=== PATIENT | female | born 1940 | race Caucasian/White ===

== ENCOUNTER 2018-04-19 16:03 | Emergency (ER) | payer MEDICARE ==
[2018-04-19 16:21] VITALS: BP 135/89
--- NOTE | 2018-04-19 17:23 | RAD ---
INDICATION: Fever COMPARISON: Chest x-ray June 15, 2007 TECHNIQUE: PA and lateral views of the chest were obtained. FINDINGS: There are surgical clips overlying the bilateral axilla The heart and mediastinum are normal in size and contour. The lungs are grossly clear. There is no evidence of large pleural effusion. Visualized bones are normal for the patient's age. There is no radiographic evidence of free air beneath the diaphragm IMPRESSION: No radiographic evidence of acute cardiopulmonary disease.
--- NOTE | 2018-04-19 17:33 | UC ---
Abdominal Pain Female HPI - HPI Summary HPI Summary: 77 yo female with the onset yesterday of fever/chills and right sided abd pain Abd pain waxes and wanes currently mild anorexic has had episodic fever and chill for weeks lasts 2-3 days this is the first time it's been associated with abd pain no wt loss no cp or sob no uti symptoms - History of Current Complaint Chief Complaint: UCGeneralIllness Stated Complaint: FEVER, AND ACHES Time Seen by Provider: 04/19/18 16:31 Hx Obtained From: Patient Hx Last Menstrual Period: post Onset/Duration: Gradual Onset, Lasting Hours Timing: Constant Severity Initially: Mild Severity Currently: Mild Pain Intensity: 3 Location: Discrete At: RUQ Radiates to: Flank Character: Colicy Alleviating Factor(s): Position Associated Signs and Symptoms: Positive: Fever, Decreased Appetite, Diarrhea - chronic intermittent issue. Negative: Diaphoresis, Cough, Chest Pain, Dizzy, Back Pain, Constipation, Blood in Stool, Urinary Symptoms, Vaginal Bleeding, Vaginal Discharge, Nausea Allergies/Adverse Reactions: Allergies Allergy/AdvReac Type Severity Reaction Status Date / Time codeine Allergy Severe GI Upset Verified 04/19/18 16:28 dextromethorphan Allergy Severe Unknown Verified 04/19/18 16:28 [From Dimetapp Reaction Cold-Congestion] Details diphenhydramine Allergy Severe Palpitation Verified 04/19/18 16:28 [From Dimetapp s Cold-Congestion] fentanyl Allergy Severe GI Upset Verified 04/19/18 16:28 hydromorphone [From Dilaudid] Allergy Severe GI Upset Verified 04/19/18 16:28 metronidazole [From Flagyl] Allergy Severe n/v, dry Verified 04/19/18 16:28 heaves oxycodone Allergy Severe GI Upset Verified 04/19/18 16:28 Penicillins Allergy Severe Rash Verified 04/19/18 16:28 phenylephrine Allergy Severe arrythmia Verified 04/19/18 16:28 [From Dimetapp Cold-Congestion] pseudoephedrine Allergy Severe Palpitation Verified 04/19/18 16:28 [From Dimetapp s Cold-Congestion] tramadol Allergy Severe GI Upset Verified 04/19/18 16:28 guaifenesin Allergy Intermediate Palpitation Verified 04/19/18 16:28 [From Dimetapp s Cold-Congestion] amoxicillin Allergy Unknown Verified 04/19/18 16:28 Reaction Details aspirin Allergy Unknown Verified 04/19/18 16:28 Reaction Details cefuroxime [From Ceftin] Allergy Unknown Verified 04/19/18 16:28 Reaction Details ciprofloxacin [From Cipro] Allergy Vomiting Verified 04/19/18 16:28 clavulanic acid Allergy Unknown Verified 04/19/18 16:28 [From Augmentin] Reaction Details omeprazole Allergy palpitations, Verified 04/19/18 16:28 hives Sulfa (Sulfonamide Allergy angio edema Verified 04/19/18 16:28 Antibiotics) terfenadine Allergy palpitations, Verified 04/19/18 16:28 arrythmia Tetracyclines Allergy arrythmia Verified 04/19/18 16:28 PMH/Surg Hx/FS Hx/Imm Hx Previously Healthy: Yes Respiratory History: COPD Cancer History: Breast Cancer - Surgical History Surgical History: Yes Surgery Procedure, Year, and Place: hysterectomy; JENA MASTECTOMY -2006; SINUS- 2003; CATARACT -2004;. Rt KNEE - MMT - 2005. Sinus surgery approx 2007 - Family History Known Family History: Positive: Hypertension - Social History Alcohol Use: Occasionally Substance Use Type: None Smoking Status (MU): Never Smoked Tobacco Have You Smoked in the Last Year: No Review of Systems Constitutional: Fever, Chills Skin: Negative Eyes: Negative ENT: Negative Respiratory: Negative Cardiovascular: Negative Gastrointestinal: Abdominal Pain Genitourinary: Negative Motor: Negative Neurovascular: Negative Musculoskeletal: Negative Neurological: Negative Psychological: Negative Is Patient Immunocompromised?: No All Other Systems Reviewed And Are Negative: Yes Physical Exam Triage Information Reviewed: Yes Appearance: Well-Appearing, No Pain Distress, Well-Nourished Vital Signs: Initial Vital Signs Temp 101 F 04/19/18 16:08 Pulse 93 04/19/18 16:08 Resp 16 04/19/18 16:08 BP 135/89 04/19/18 16:08 Pulse Ox 100 04/19/18 16:08 Vital Signs Reviewed: Yes Eyes: Positive: Conjunctiva Clear ENT: Positive: Hearing grossly normal. Negative: Nasal congestion, Nasal drainage, Trismus, Muffled voice, Hoarse voice Neck: Positive: Supple, Nontender, No Lymphadenopathy Respiratory: Positive: Lungs clear, Normal breath sounds, No respiratory distress, No accessory muscle use Cardiovascular: Positive: RRR, No Murmur Abdomen Description: Positive: No Organomegaly, Soft. Negative: Nontender - RLQ tenderness Bowel Sounds: Positive: Present Musculoskeletal: Positive: ROM Intact, No Edema Neurological: Positive: Alert Psychological Exam: Normal Skin Exam: Normal Diagnostics - Laboratory Diagnostic Studies Completed/Ordered: UA +rbcs - Radiology No standard instances Xray Interpretation: No Acute Changes Radiology Interpretation Completed By: Radiologist Abd Pain Female Course/Dx - Differential Dx/Diagnosis Provider Diagnoses: fever and right sided abd pain of uncertain cause Discharge - Sign-Out/Discharge Documenting (check all that apply): Patient Departure All imaging exams completed and their final reports reviewed: Yes - Discharge Plan Condition: Stable Disposition: TRANS HIGHER LVL OF CARE FAC Referrals: Emma Miranda MD [Primary Care Provider] - Additional Instructions: I suggest you go to the ER for the evaluation of your fever and right lower quadrant abdominal pain Don't eat or drink en route - Billing Disposition and Condition Condition: STABLE Disposition: Trans Higher Lvl of Care Fac
--- NOTE | 2018-04-21 19:45 | UC ---
- Progress Note Progress Note: urine no growth pt sent to ED no change coreyj 04/21/18 Discharge - Sign-Out/Discharge Documenting (check all that apply): Post-Discharge Follow Up All imaging exams completed and their final reports reviewed: Yes - Discharge Plan Condition: Stable Disposition: TRANS HIGHER LVL OF CARE FAC Referrals: Emma Miranda MD [Primary Care Provider] - Additional Instructions: I suggest you go to the ER for the evaluation of your fever and right lower quadrant abdominal pain Don't eat or drink en route - Billing Disposition and Condition Condition: STABLE Disposition: Trans Higher Lvl of Care Fac
== END 2018-04-19 17:40 | disposition short-term general hospital (02) ==
LOC: UCEAST 16:03
DX: R50.9 Fever, unspecified (principal); R10.31 Right lower quadrant pain; R10.11 Right upper quadrant pain; Z88.6 Allergy status to analgesic agent; Z88.1 Allergy status to other antibiotic agents; Z88.5 Allergy status to narcotic agent; Z88.0 Allergy status to penicillin; Z88.2 Allergy status to sulfonamides; Z88.8 Allergy status to other drugs, medicaments and biological substances
CPT/HCPCS: 71046; 81003; 87086; 99212; G0463

== ENCOUNTER 2018-04-19 18:04 | Emergency (ER) | payer MEDICARE ==
--- NOTE | 2018-04-19 18:38 | ED ---
HPI Febrile Illness - HPI Summary HPI Summary: A 77 y/o female accompanied by her presents to ED c/o intermittent fever. Additionally c/o RLQ abdominal pain and headache (low-grade, forehead) reaching 3/10 in severity. As per triage, "Pt referred to ED by [facility] for c/o recurrent fever and R lower quad abd pain". According to the patient, she has been experiencing fever and abdominal pain for the 3rd time in 4 weeks. Additionally, she generally "feels awful". She stated that the fever is more of a concern for her as her abdominal pain is intermittent (pain also moves around , noticed at [facility]) and she has IBS. The fever started yesterday afternoon and has constant since. Furthermore, approximately 2 weeks ago the fever lasted 4-5 days, with the week before that being severe (103-104 F) lasting for 3 days. Denies any rash, ear pain, urinary symptoms, sore throat, diarrhea (that is abnormal), constipation (that is abnormal) or chest congestion however does have clear nasal discharge. She noted that her PCP, Dr. Emma Tobias, did basic blood work and exploratory scans. The blood work revealed an increase white count. Patient has multiple allergies, but can have IV constrast as she had it in the past. A CXR was completed at [facility] earlier today. Patient is unsure of tick, PCP did not exam her for one. - History of Current Complaint Chief Complaint: EDFever Time Seen by Provider: 04/19/18 18:29 Hx Obtained From: Patient Hx Last Menstrual Period: post Onset/Duration: Started Weeks Ago, Still Present Timing: Intermittent Temperature: 101.4 F - Triage Initial Severity: Mild Current Severity: Mild Pain Intensity: 3 Pain Scale Used: 0-10 Numeric Aggravating Factors: Nothing Alleviating Factors: Nothing Associated Signs and Symptoms: Headache - Allergy/Home Medications Allergies/Adverse Reactions: Allergies Allergy/AdvReac Type Severity Reaction Status Date / Time codeine Allergy Severe GI Upset Verified 04/19/18 16:28 dextromethorphan Allergy Severe Unknown Verified 04/19/18 16:28 [From Dimetapp Reaction Cold-Congestion] Details diphenhydramine Allergy Severe Palpitation Verified 04/19/18 16:28 [From Dimetapp s Cold-Congestion] fentanyl Allergy Severe GI Upset Verified 04/19/18 16:28 hydromorphone [From Dilaudid] Allergy Severe GI Upset Verified 04/19/18 16:28 metronidazole [From Flagyl] Allergy Severe n/v, dry Verified 04/19/18 16:28 heaves oxycodone Allergy Severe GI Upset Verified 04/19/18 16:28 Penicillins Allergy Severe Rash Verified 04/19/18 16:28 phenylephrine Allergy Severe arrythmia Verified 04/19/18 16:28 [From Dimetapp Cold-Congestion] pseudoephedrine Allergy Severe Palpitation Verified 04/19/18 16:28 [From Dimetapp s Cold-Congestion] tramadol Allergy Severe GI Upset Verified 04/19/18 16:28 guaifenesin Allergy Intermediate Palpitation Verified 04/19/18 16:28 [From Dimetapp s Cold-Congestion] amoxicillin Allergy Unknown Verified 04/19/18 16:28 Reaction Details aspirin Allergy Unknown Verified 04/19/18 16:28 Reaction Details cefuroxime [From Ceftin] Allergy Unknown Verified 04/19/18 16:28 Reaction Details ciprofloxacin [From Cipro] Allergy Vomiting Verified 04/19/18 16:28 clavulanic acid Allergy Unknown Verified 04/19/18 16:28 [From Augmentin] Reaction Details omeprazole Allergy palpitations, Verified 04/19/18 16:28 hives Sulfa (Sulfonamide Allergy angio edema Verified 04/19/18 16:28 Antibiotics) terfenadine Allergy palpitations, Verified 04/19/18 16:28 arrythmia Tetracyclines Allergy arrythmia Verified 04/19/18 16:28 PMH/Surg Hx/FS Hx/Imm Hx Endocrine/Hematology History: Denies: Hx Diabetes, Hx Thyroid Disease Cardiovascular History: Denies: Hx Angina, Hx Coronary Artery Disease, Hx Hypercholesterolemia, Hx Hypertension, Hx Myocardial Infarction, Hx Pacemaker/ICD, Hx Peripheral Vascular Disease, Hx Valvular Heart Disease Respiratory History: Reports: Hx Asthma - MINOR Denies: Hx Chronic Obstructive Pulmonary Disease (COPD) Musculoskeletal History: Reports: Hx Arthritis - mild, Hx Osteoporosis Denies: Hx Rheumatoid Arthritis Sensory History: Denies: Hx Cataracts, Hx Contacts or Glasses, Hx Glaucoma, Hx Hearing Aid Opthamlomology History: Denies: Hx Cataracts, Hx Contacts or Glasses, Hx Glaucoma Neurological History: Reports: Other Neuro Impairments/Disorders - FIBROMYALGIA Denies: Hx Headaches, Hx Seizures, Hx Transient Ischemic Attacks (TIA) Psychiatric History: Denies: Hx Anxiety, Hx Depression, Hx Panic Disorder - Cancer History Cancer Type, Location and Year: BREAST - JENA. MASTECTOMY 7 YR AGO Hx Chemotherapy: No Hx Radiation Therapy: No - Surgical History Surgery Procedure, Year, and Place: hysterectomy; JENA MASTECTOMY -2006; SINUS- 2003; CATARACT -2004;. Rt KNEE - MMT - 2005. Sinus surgery approx 2007 Infectious Disease History: No Infectious Disease History: Denies: Traveled Outside the [place] in Last 30 Days - Family History Known Family History: Positive: Hypertension - Social History Alcohol Use: Occasionally Hx Substance Use: No Substance Use Type: Reports: None Hx Tobacco Use: No Smoking Status (MU): Never Smoked Tobacco Have You Smoked in the Last Year: No Review of Systems Positive: Fever - intermittent Positive: Nasal Discharge - Somewhat clear. Negative: Sore Throat, Ear Ache Positive: Other - NEGATIVE: Chest congestion Positive: Abdominal Pain, Other - NEGATIVE: Constipation. Negative: Diarrhea Positive: no symptoms reported Negative: Rash Positive: Headache All Other Systems Reviewed And Are Negative: Yes Physical Exam - Summary Physical Exam Summary: General: well-appearing, no pain distress Skin: warm, color reflects adequate perfusion, dry Head: normal Eyes: EOMI, TATIANA ENT: normal Neck: supple, nontender Respiratory: CTA, breath sounds present Cardiovascular: RRR Abdomen: soft, mild tenderness on the right side of abdomen. Bowel: present Musculoskeletal: normal, strength/ROM intact Neurological: sensory/motor intact, A&O x3 Psychological: affect/mood appropriate Triage Information Reviewed: Yes Vital Signs On Initial Exam: Initial Vitals Temp Pulse Resp BP Pulse Ox 101.4 F 85 16 149/90 97 04/19/18 18:10 04/19/18 18:10 04/19/18 18:10 04/19/18 18:10 04/19/18 18:10 Vital Signs Reviewed: Yes Diagnostics - Vital Signs Vital Signs Temp Pulse Resp BP Pulse Ox 04/19/18 18:10 101.4 F 85 16 149/90 97 - Laboratory Result Diagrams: 04/19/18 19:23 04/19/18 19:23 Lab Statement: Any lab studies that have been ordered have been reviewed, and results considered in the medical decision making process. - EKG 1953 Cardiac Rate: NL - 76 BPM EKG Rhythm: Sinus Rhythm ST Segment: Normal Ectopy: None Course/Dx - Course Course Of Treatment: Medications reviewed. Allergies noted. DISCUSSED RESULTS WITH THE PATIENT AND . LYME, BABESIOSIS AND EHRLICHIOSIS SCREENS PENDING. F/U WITH DR TOBIAS ON 04/21/18, RETURN TO THE ED SOONER IF WORSE. - Diagnoses Provider Diagnoses: Fever, Abdominal pain - Provider Notifications Discussed Care Of Patient With: Chris Radford Time Discussed With Above Provider: 21:26 Instructed by Provider To: Other - Discussed case with Dr. Radford. Discharge - Sign-Out/Discharge Documenting (check all that apply): Patient Departure - Discharge Plan Condition: Stable Disposition: HOME Patient Education Materials: Fever in Adults (ED), Abdominal Pain (ED) Referrals: Emma Tobias MD [Primary Care Provider] - Additional Instructions: FOLLOW UP WITH DR TOBIAS ON 04/21/18. RETURN TO THE EMERGENCY DEPARTMENT FOR ANY WORSENING OF YOUR CONDITION OR QUESTIONS OR CONCERNS. - Billing Disposition and Condition Condition: STABLE Disposition: Home - Attestation Statements Document Initiated by Eagleibe: Yes Documenting Scribe: Yayo Khoury Provider For Whom Nica is Documenting (Include Credential): Derrick Chester MD Scribe Attestation: Yayo Mg, scribed for Derrick Chester MD on 04/19/18 at 4540. Scribe Documentation Reviewed: Yes Provider Attestation: The documentation as recorded by the Yayo greenwood accurately reflects the service I personally performed and the decisions made by me, Derrick Chester MD
[2018-04-19] MEDS ORDERED: NS 0.9% 1000 ML*IV.FLUID IV ONE (19:12)
[2018-04-19 19:33] LABS: ABS Basophils 0 10^3/ul (0-0.2); ABS Eosinophils 0 10^3/ul (0-0.6); ABS Lymphocytes 0.6 10^3/ul (1.0-4.8); ABS Monocytes 0.4 10^3/ul (0-0.8); ABS Neutrophils 5.1 10^3/ul (1.5-7.7); ABS Nucleated RBC 0 10^3/ul; Eosinophil % 0.1 % (0-6); Hematocrit 36 % (35-47); Hemoglobin 12.4 g/dl (12.0-16.0); Lymphocyte % 9.1 % (25-47); Mean Corpuscular HGB Conc 34 g/dl (31-36); Mean Corpuscular Hemoglobin 30 pg (27-31); Mean Corpuscular Volume 86 fL (80-97); Mean Platelet Volume 7.5 um3 (7.4-10.4); Nucleated Red Blood Cells % 0.1; Platelet Count 291 10^3/ul (150-450); Red Blood Count 4.19 10^6/ul (4.00-5.40); Red Cell Distribution Width 15 % (10.5-15); White Blood Count 6.1 10^3/ul (3.5-10.8)
[2018-04-19 19:44] LABS: INR 1.05 (0.77-1.02)
[2018-04-19 19:54] LABS: EGFR Non-African American 65.6 (>60)
[2018-04-19] MEDS ORDERED: Iohexol 300* (CONTRAST) 10 ML SDV IV ONE (20:26)
[2018-04-19 21:51] LABS: Urine Appearance Clear; Urine Blood 1+ (Negative); Urine Color Straw; Urine Ketones Trace (Negative); Urine Protein Negative (Negative); Urine Red Blood Cell Trace(0-2/hpf) (Absent); Urine Specific Gravity 1.003 (1.010-1.030); Urine Urobilinogen Negative (Negative); Urine White Blood Cell Trace(0-5/hpf) (Absent)
--- NOTE | 2018-04-19 22:05 | RAD ---
EXAM: CT Abdomen and Pelvis With Intravenous Contrast EXAM DATE/TIME: Exam ordered 04/19/2018 9:15 PM CLINICAL HISTORY: 77 years old, female; Pain and signs and symptoms; Fever; Abdominal pain; Localized; Right; Additional info: Rt abd pain, fever TECHNIQUE: Axial computed tomography images of the abdomen and pelvis with intravenous contrast. All CT scans at this facility use at least one of these dose optimization techniques: automated exposure control; mA and/or kV adjustment per patient size (includes targeted exams where dose is matched to clinical indication); or iterative reconstruction. Coronal and sagittal reformatted images were created and reviewed. CONTRAST: 59 mL of OMNI administered intravenously. COMPARISON: A/P W CT ABD/PEL W 11/03/2015 2:17 PM FINDINGS: Lung bases: Minimal bibasilar atelectasis or scar. ABDOMEN: Liver: Ill-defined area of hyperenhancement in the right hepatic lobe measuring approximately 17 mm which is similar to the prior study. Gallbladder and bile ducts: Unremarkable. No calcified stones. No ductal dilation. Pancreas: Unremarkable. No mass. No ductal dilation. Spleen: Unremarkable. No splenomegaly. Adrenals: Unremarkable. No mass. Kidneys and ureters: Unremarkable. No solid mass. No hydronephrosis. Stomach and bowel: The distal ileum appears contracted. No obstruction. No mucosal thickening. PELVIS: Appendix: There are no changes of appendicitis. A normal appendix is not seen. Bladder: Unremarkable. No mass. Reproductive: Status post hysterectomy. ABDOMEN and PELVIS: Intraperitoneal space: Unremarkable. No free air. No significant fluid collection. Bones/joints: No acute fracture. No dislocation. Soft tissues: Unremarkable. Vasculature: Unremarkable. No abdominal aortic aneurysm. Lymph nodes: Unremarkable. No enlarged lymph nodes. IMPRESSION: 1. There has been little change from 11/03/2015. 2. Ill-defined area of hyperenhancement in the right hepatic lobe which is similar to the prior study. 3. Status post hysterectomy.
[2018-04-19 22:26] VITALS: BP 135/63
== END 2018-04-19 22:25 | disposition home or self-care (01) ==
LOC: ED 18:04
DX: R50.9 Fever, unspecified (principal); R10.9 Unspecified abdominal pain
CPT/HCPCS: 36415; 74177; 80053; 81003; 81015; 83605; 83880; 84484; 85025; 85610; 85730; 86140; 86618; 86666; 86753; 87040; 93005; 96361; 96374; 99282; Q9967

== ENCOUNTER 2018-05-13 18:42 | Emergency (ER) | payer MEDICARE ==
--- NOTE | 2018-05-13 18:47 | UC ---
Cardiac HPI - HPI Summary HPI Summary: 77 yo female presents with chest pressure. She tells me that earlier today she just "didn't feel well" - so she took a nap this afternoon. When she woke around 1800 she felt her ribs/chest were being squeezed and that it was difficult to take a deep breath. Also felt some ache to her left upper arm, which she has had in her left hand for months, but never in her upper arm. She took a 325mg ASA and came to after her symptoms did not resolve within an hour. Currently she denies fever, chills, recent illness, dizziness, headache, SOB, abdominal pain, n/v. - History of Current Complaint Stated Complaint: CHEST COMPRESSION,ARM NUMBNESS Time Seen by Provider: 05/13/18 18:46 Hx Obtained From: Patient Hx Last Menstrual Period: post Onset/Duration: Sudden Onset Initial Severity: Moderate Current Severity: Moderate Pain Intensity: 5 - Allergy/Home Medications Allergies/Adverse Reactions: Allergies Allergy/AdvReac Type Severity Reaction Status Date / Time codeine Allergy Severe GI Upset Verified 05/13/18 20:54 dextromethorphan Allergy Severe Unknown Verified 05/13/18 20:54 [From Dimetapp Reaction Cold-Congestion] Details fentanyl Allergy Severe GI Upset Verified 05/13/18 20:54 hydromorphone [From Dilaudid] Allergy Severe GI Upset Verified 05/13/18 20:54 metronidazole [From Flagyl] Allergy Severe n/v, dry Verified 05/13/18 20:54 heaves oxycodone Allergy Severe GI Upset Verified 05/13/18 20:54 Penicillins Allergy Severe Rash Verified 05/13/18 20:54 phenylephrine Allergy Severe arrythmia Verified 05/13/18 20:54 [From Dimetapp Cold-Congestion] pseudoephedrine Allergy Severe Palpitation Verified 05/13/18 20:54 [From Dimetapp s Cold-Congestion] tramadol Allergy Severe GI Upset Verified 05/13/18 20:54 guaifenesin Allergy Intermediate Palpitation Verified 05/13/18 20:54 [From Dimetapp s Cold-Congestion] amoxicillin Allergy Unknown Verified 05/13/18 20:54 Reaction Details cefuroxime [From Ceftin] Allergy Unknown Verified 05/13/18 20:54 Reaction Details ciprofloxacin [From Cipro] Allergy Vomiting Verified 05/13/18 20:54 clavulanic acid Allergy Unknown Verified 05/13/18 20:54 [From Augmentin] Reaction Details omeprazole Allergy palpitations, Verified 05/13/18 20:54 hives Sulfa (Sulfonamide Allergy angio edema Verified 05/13/18 20:54 Antibiotics) terfenadine Allergy palpitations, Verified 05/13/18 20:54 arrythmia Tetracyclines Allergy arrythmia Verified 05/13/18 20:54 Home Medications: Home Medications Aspirin TAB* [Aspirin 325 MG TAB*] 1 tab PO PRN 05/13/18 [History] PMH/Surg Hx/FS Hx/Imm Hx Respiratory History: Asthma GI/ History: Gastroesophageal Reflux - Surgical History Surgical History: Yes Surgery Procedure, Year, and Place: hysterectomy; JENA MASTECTOMY -2006; SINUS- 2003; CATARACT -2004;. Rt KNEE - MMT - 2005. Sinus surgery approx 2007 - Family History Known Family History: Positive: Hypertension - Social History Occupation: Retired Lives: With Family Alcohol Use: Occasionally Substance Use Type: None Smoking Status (MU): Never Smoked Tobacco Have You Smoked in the Last Year: No Review of Systems Constitutional: Negative Skin: Negative Eyes: Negative ENT: Negative Respiratory: Negative Cardiovascular: Other - chest pressure Gastrointestinal: Negative Genitourinary: Negative Neurovascular: Negative Neurological: Negative Psychological: Negative All Other Systems Reviewed And Are Negative: Yes Physical Exam - Summary Physical Exam Summary: GENERAL: NAD. WDWN. No pain distress. SKIN: No rashes, sores, lesions, or open wounds. NECK: Supple. Nontender. No lymphadenopathy. CHEST: CTAB. No r/r/w. No accessory muscle use. Breathing comfortably and in no distress. CV: RRR. Without m/r/g. Pulses intact. Cap refill <2seconds ABDOMEN: Soft. NTTP. No distention or guarding. No CVA tenderness. Bowel sounds present NEURO: Alert. PSYCH: Age appropriate behavior. Triage Information Reviewed: Yes Vital Signs: Vital Signs: Temp Pulse Resp BP Pulse Ox 97.4 F 65 16 163/79 99 05/13/18 18:49 05/13/18 18:49 05/13/18 18:49 05/13/18 18:49 05/13/18 18:49 Vital Signs Reviewed: Yes - Assessment/Plan Course Of Treatment: EKG 61bpm NSR no ST changes as read by Dr. Holloway. Given pt' s symptoms and hx of cancer, there is a concern for PE and/or cardiac disease. Therefore, I have advised pt and her with her today to be further evaluated in the ED. They were agreeable to this, but declined ambulance transfer and will drive her. - Clinical Impression Provider Diagnoses: Chest pressure Discharge - Sign-Out/Discharge Documenting (check all that apply): Patient Departure All imaging exams completed and their final reports reviewed: No Studies - Discharge Plan Condition: Stable Disposition: HOME Referrals: Emma Miranda MD [Primary Care Provider] - Additional Instructions: Please go to the ER for further evaluation of your chest pressure - Billing Disposition and Condition Condition: STABLE Disposition: Home
[2018-05-13 18:58] VITALS: BP 163/79
== END 2018-05-13 19:30 | disposition home or self-care (01) ==
LOC: UCEAST 18:42
DX: R07.89 Other chest pain (principal); Z88.1 Allergy status to other antibiotic agents; Z88.5 Allergy status to narcotic agent; Z88.0 Allergy status to penicillin; Z88.2 Allergy status to sulfonamides; Z88.8 Allergy status to other drugs, medicaments and biological substances
CPT/HCPCS: 93005; 99212; G0463

== ENCOUNTER 2018-05-13 20:40 | Emergency (ER) | payer MEDICARE ==
--- NOTE | 2018-05-14 00:28 | ED ---
HPI Chest Pain - HPI Summary HPI Summary: The pt is a 77 y.o female who is presenting [place] [facility] [place] by with a chief complaint of chest pain. The pt also reports of left arm pressure since 1630 as well as nausea as per triage report. Currently the pt denies chest pain, however, the left arm pressure is still present. Pt also denies PMHx of cardiac disease as per triage report. The pt is reported to be feeling better and stated that the pain was resolving at around 1736 upon reaching urgent care ([facility]). The pain is described as a squeezing. There was tingling in her fingers for a few months prior to current chief complaint. The left arm pressure is reported to be radiating into her left hand and this began around in the morning, according to the pt, upon waking up. Pt denies vomiting and diaphoresis. She states there is slight nausea that is chronic. Stress test was performed 7 years ago. The pt stated she has intermittent arrhythmia. Pt denies diabetes and reports hypotension. Aspirin was taken (325 mg) prior to [facility] arrival and other medication reviewed. The pt also has Costochondritis consistent with FHx - History of Current Complaint Chief Complaint: EDChestPainROMI Hx Last Menstrual Period: post Onset/Duration: Started Hours Ago - 05/13/18 in the "morning", Resolved Initial Severity: Mild Current Severity: Mild Pain Intensity: 2 Pain Scale Used: 0-10 Numeric Chest Pain Location: Diffuse Character: Pressure/Squeezing Aggravating Factor(s): Nothing Alleviating Factor(s): Nothing Associated Signs and Symptoms: Positive: Nausea, Other: - left hand tingling ( since 2 months ago), left arm pressure.. Negative: Diaphoresis, Vomiting - Allergy/Home Medications Allergies/Adverse Reactions: Allergies Allergy/AdvReac Type Severity Reaction Status Date / Time codeine Allergy Severe GI Upset Verified 05/13/18 20:54 dextromethorphan Allergy Severe Unknown Verified 05/13/18 20:54 [From Dimetapp Reaction Cold-Congestion] Details fentanyl Allergy Severe GI Upset Verified 05/13/18 20:54 hydromorphone [From Dilaudid] Allergy Severe GI Upset Verified 05/13/18 20:54 metronidazole [From Flagyl] Allergy Severe n/v, dry Verified 05/13/18 20:54 heaves oxycodone Allergy Severe GI Upset Verified 05/13/18 20:54 Penicillins Allergy Severe Rash Verified 05/13/18 20:54 phenylephrine Allergy Severe arrythmia Verified 05/13/18 20:54 [From Dimetapp Cold-Congestion] pseudoephedrine Allergy Severe Palpitation Verified 05/13/18 20:54 [From Dimetapp s Cold-Congestion] tramadol Allergy Severe GI Upset Verified 05/13/18 20:54 guaifenesin Allergy Intermediate Palpitation Verified 05/13/18 20:54 [From Dimetapp s Cold-Congestion] amoxicillin Allergy Unknown Verified 05/13/18 20:54 Reaction Details cefuroxime [From Ceftin] Allergy Unknown Verified 05/13/18 20:54 Reaction Details ciprofloxacin [From Cipro] Allergy Vomiting Verified 05/13/18 20:54 clavulanic acid Allergy Unknown Verified 05/13/18 20:54 [From Augmentin] Reaction Details omeprazole Allergy palpitations, Verified 05/13/18 20:54 hives Sulfa (Sulfonamide Allergy angio edema Verified 05/13/18 20:54 Antibiotics) terfenadine Allergy palpitations, Verified 05/13/18 20:54 arrythmia Tetracyclines Allergy arrythmia Verified 05/13/18 20:54 PMH/Surg Hx/FS Hx/Imm Hx Endocrine/Hematology History: Denies: Hx Diabetes, Hx Thyroid Disease Cardiovascular History: Denies: Hx Angina, Hx Coronary Artery Disease, Hx Hypercholesterolemia, Hx Hypertension, Hx Myocardial Infarction, Hx Pacemaker/ICD, Hx Peripheral Vascular Disease, Hx Valvular Heart Disease Respiratory History: Reports: Hx Asthma - MINOR Denies: Hx Chronic Obstructive Pulmonary Disease (COPD) Musculoskeletal History: Reports: Hx Arthritis - mild, Hx Osteoporosis Denies: Hx Rheumatoid Arthritis Sensory History: Denies: Hx Cataracts, Hx Contacts or Glasses, Hx Glaucoma, Hx Hearing Aid Opthamlomology History: Denies: Hx Cataracts, Hx Contacts or Glasses, Hx Glaucoma Neurological History: Reports: Other Neuro Impairments/Disorders - FIBROMYALGIA Denies: Hx Headaches, Hx Seizures, Hx Transient Ischemic Attacks (TIA) Psychiatric History: Denies: Hx Anxiety, Hx Depression, Hx Panic Disorder - Cancer History Cancer Type, Location and Year: 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 Rt KNEE - MMT - 2006. Sinus surgery approx 2008 Infectious Disease History: No Infectious Disease History: Denies: Traveled Outside the [place] in Last 30 Days - Family History Known Family History: Positive: Hypertension, Other - Chostochondritis - Sister and Mother - Social History Occupation: Retired Lives: With Family Alcohol Use: Occasionally Hx Substance Use: No Substance Use Type: Reports: None Hx Tobacco Use: No Smoking Status (MU): Never Smoked Tobacco Have You Smoked in the Last Year: No Review of Systems Negative: Skin Diaphoresis Eyes: Negative ENT: Negative Positive: Chest Pain Respiratory: Negative Positive: Nausea - slight/chronic. Negative: Vomiting Genitourinary: Negative Musculoskeletal: Other - Left arm pressure Skin: Negative Neurological: Other - left hand tingling Psychological: Normal All Other Systems Reviewed And Are Negative: Yes Physical Exam - Summary Physical Exam Summary: VITAL SIGNS: Reviewed. GENERAL: Patient is a well-developed and nourished (FEMALE) who is lying comfortable in the stretcher. Patient is not in any acute respiratory distress. HEAD AND FACE: No signs of trauma. No ecchymosis, hematomas or skull depressions. No sinus tenderness. EYES: PERRLA, EOMI x 2, No injected conjunctiva, no nystagmus. EARS: Hearing grossly intact. Ear canals and tympanic membranes are within normal limits. MOUTH: Oropharynx within normal limits. NECK: Supple, trachea is midline, no adenopathy, no JVD, no carotid bruit, no c- spine tenderness, neck with full ROM. CHEST: Symmetric, no tenderness at palpation LUNGS: Clear to auscultation bilaterally. No wheezing or crackles. CVS: Regular rate and rhythm, S1 and S2 present, no murmurs or gallops appreciated. ABDOMEN: Soft, non-tender. No signs of distention. No rebound no guarding, and no masses palpated. Bowel sounds are normal. EXTREMITIES: FROM in all major joints, no edema, no cyanosis or clubbing. NEURO: Alert and oriented x 3. No acute neurological deficits. Speech is normal and follows commands. SKIN: Dry and warm Triage Information Reviewed: Yes Vital Signs On Initial Exam: Initial Vitals Temp Pulse Resp BP Pulse Ox 98.1 F 72 16 153/85 98 05/13/18 20:45 05/13/18 20:45 05/13/18 20:45 05/13/18 20:45 05/13/18 20:45 Vital Signs Reviewed: Yes Diagnostics - Vital Signs Vital Signs Temp Pulse Resp BP Pulse Ox 05/13/18 20:45 98.1 F 72 16 153/85 98 - Laboratory Result Diagrams: 05/14/18 00:34 05/14/18 00:34 Lab Statement: Any lab studies that have been ordered have been reviewed, and results considered in the medical decision making process. - Radiology Chest X-ray Radiology Interpretation Completed By: ED Physician - As per ED Physician, the chest X-ray reveals no acute processes. Offical report is pending. - EKG 2057 EKG Rhythm: Sinus Rhythm - 62 bpm EKG Interpretation: Normal [place], and normal intervals and no ischemic changes at 2057 Chest Pain Course/Dx - Course Course Of Treatment: The pt is 77 y.o female who has a chief complaint of chest pain. She received an EKG in the [facility] as well as a chest X-ray. The EKG showed normal findings. Upon further evaluation the pt reports to be chest pain free. She has a heart score of 2 and has a 2 negative troponin. We recommend receiving a stress test as an outpatient. The pt will be discharged home with a recommendation to follow up with PCP and medical communication specialist within 1 to 2 days to receive a stress test. The dx will be chest pain. - Diagnoses Provider Diagnoses: Chest pain Discharge - Sign-Out/Discharge Documenting (check all that apply): Patient Departure - Discharge home, Post- Discharge Follow Up - PCP and medical communication specialist follow up within 1 to 2 days - Discharge Plan Condition: Stable Disposition: HOME Patient Education Materials: Chest Pain (ED) Referrals: Emma Miranda MD [Primary Care Provider] - Additional Instructions: We recommend follow up with [employer] and PCP within 1 to 2 days as well as to receive a stress test as an outpatient. RETURN TO THE EMERGENCY DEPARTMENT FOR CHANGING OR WORSENING SYMPTOMS. - Attestation Statements Document Initiated by Scribe: Yes Documenting Scribe: Satya Scruggs Provider For Whom Scribe is Documenting (Include Credential): Dr. Marily Cortez Scribe Attestation: Satya Mg scribed for Dr. Marily Cortez on 05/14/18 at 0418.
[2018-05-14 00:53] LABS: ABS Basophils 0.1 10^3/ul (0-0.2); ABS Eosinophils 0.1 10^3/ul (0-0.6); ABS Lymphocytes 1.7 10^3/ul (1.0-4.8); ABS Monocytes 0.5 10^3/ul (0-0.8); ABS Nucleated RBC 0 10^3/ul; Eosinophil % 1.5 % (0-6); Hematocrit 34 % (35-47); Hemoglobin 11.7 g/dl (12.0-16.0); Lymphocyte % 31.9 % (25-47); Mean Corpuscular HGB Conc 34 g/dl (31-36); Mean Corpuscular Hemoglobin 30 pg (27-31); Mean Corpuscular Volume 87 fL (80-97); Mean Platelet Volume 7.1 um3 (7.4-10.4); Nucleated Red Blood Cells % 0.1; Platelet Count 322 10^3/ul (150-450); Red Blood Count 3.91 10^6/ul (4.00-5.40); Red Cell Distribution Width 16 % (10.5-15); White Blood Count 5.3 10^3/ul (3.5-10.8)
[2018-05-14 01:23] LABS: EGFR Non-African American 62.1 (>60)
[2018-05-14 04:46] VITALS: BP 161/90
--- NOTE | 2018-05-14 07:51 | RAD ---
INDICATION: Chest pain. COMPARISON: Comparison is made with prior chest x-ray study from April 19, 2018. TECHNIQUE: A portable view of the chest was obtained. FINDINGS: Cardiac and mediastinal contours appear to be within normal limits. The lungs are clear. No pleural effusion is seen. The patient is status post bilateral axillary node dissection. IMPRESSION: NO EVIDENCE FOR ACUTE DISEASE. R0
== END 2018-05-14 04:20 | disposition home or self-care (01) ==
LOC: ED 20:40
DX: R07.9 Chest pain, unspecified (principal); R11.0 Nausea; Z85.3 Personal history of malignant neoplasm of breast; Z90.13 Acquired absence of bilateral breasts and nipples; Z88.5 Allergy status to narcotic agent; Z88.0 Allergy status to penicillin; Z88.8 Allergy status to other drugs, medicaments and biological substances; Z88.2 Allergy status to sulfonamides
CPT/HCPCS: 36415; 71045; 80053; 83735; 84484; 85025; 85610; 85730; 93005; 99283

== ENCOUNTER 2021-05-30 15:11 | Inpatient (IN) ==
[2021-05-30] MEDS ORDERED: Iodixanol (CONTRAST) 320 MG/ML 100 ML SDV IV ONE (15:45)
[2021-05-30 15:52] LABS: ABS Basophils 0.1 10^3/ul (0-0.2); ABS Lymphocytes 0.7 10^3/ul (1.0-4.8); ABS Monocytes 0.5 10^3/ul (0-0.8); ABS Neutrophils 12.6 10^3/ul (1.5-7.7); Eosinophil % 0.1 %; Hematocrit 31 % (35-47); Hemoglobin 10.6 g/dL (12.0-16.0); Mean Corpuscular HGB Conc 34 g/dL (31-36); Mean Corpuscular Hemoglobin 29 pg (27-31); Mean Corpuscular Volume 84 fL (80-97); Mean Platelet Volume 6.8 fL (7.4-10.4); Platelet Count 320 10^3/uL (150-450); Red Blood Count 3.68 10^6 /uL (3.70-4.87); Red Cell Distribution Width 16 % (10-15); White Blood Count 13.8 10^3/uL (3.5-10.8)
[2021-05-30 16:01] LABS: INR 1.29 (0.86-1.15)
[2021-05-30 16:08] LABS: Albumin 3.6 g/dL (3.2-5.2); Albumin/Globulin Ratio 1.2 (1-3); Calcium 8.9 mg/dL (8.6-10.3); Globulin 2.9 g/dL (2-4); Potassium 3.8 mmol/L (3.5-5.0); Total Bilirubin 0.4 mg/dL (0.2-1.0); Total Protein 6.5 g/dL (6.4-8.9)
[2021-05-30] MEDS ORDERED: NS 0.9% 1000 ml BAG 1,000 ML IV ONE (16:19)
[2021-05-30] MEDS ORDERED: Morphine 4 MG/ML VIAL (1 ml) IV ONE (16:24)
[2021-05-30] MEDS ORDERED: Ondansetron 4 mg VIAL 2 MG/ML 2 ml VIAL IV ONE (16:26)
[2021-05-30 16:48] LABS: Troponin I 0.01 ng/mL (<0.03)
[2021-05-30] MEDS ORDERED: Morphine 2 MG/ML SYRINGE IV PRN (18:48)
[2021-05-30] MEDS ORDERED: Iohexol 350 (CONTRAST) 500 ML MDV IV ONE (19:10)
[2021-05-30] MEDS ORDERED: HYDROcodone/ACETAMIN 5/325 mg TAB PO PRN (19:36)
[2021-05-30 22:11] LABS: Hematocrit 29 % (35-47); Hemoglobin 9.9 g/dL (12.0-16.0)
[2021-05-30 22:26] LABS: Rapid COVID-19 Molecular Undetected (Undetected)
[2021-05-30] MEDS: Morphine 2 MG/ML SYRINGE IV PRN (23:56)
[2021-05-31] MEDS ORDERED: Latanoprost 0.005% 2.5 ml BTL BOTH EYES SCH (01:53)
[2021-05-31] MEDS: Morphine 2 MG/ML SYRINGE IV PRN ×2 (01:55→09:48)
[2021-05-31] MEDS: TRAVOPROST BOTH EYES SCH ×2 (01:57→07:40)
[2021-05-31 02:05] LABS: Hematocrit 31 % (35-47); Hemoglobin 10.5 g/dL (12.0-16.0)
[2021-05-31] MEDS: Latanoprost 0.005% 2.5 ml BTL BOTH EYES SCH ×2 (02:31→21:01)
[2021-05-31 04:59] LABS: ABS Lymphocytes 0.7 10^3/ul (1.0-4.8); ABS Monocytes 0.6 10^3/ul (0-0.8); ABS Neutrophils 7.7 10^3/ul (1.5-7.7); Eosinophil % 0.3 %; Hematocrit 30 % (35-47); Hemoglobin 10.1 g/dL (12.0-16.0); Mean Corpuscular HGB Conc 34 g/dL (31-36); Mean Corpuscular Hemoglobin 29 pg (27-31); Mean Corpuscular Volume 85 fL (80-97); Mean Platelet Volume 6.8 fL (7.4-10.4); Platelet Count 289 10^3/uL (150-450); Red Cell Distribution Width 16 % (10-15)
[2021-05-31 05:14] LABS: Calcium 8.6 mg/dL (8.6-10.3); Potassium 3.8 mmol/L (3.5-5.0)
[2021-05-31 07:02] LABS: TSH Ultra Thyroid Stim Horm 1.59 mcIU/mL (0.34-5.60)
[2021-05-31] MEDS ORDERED: Perflutren Lipid Microsphere 3 ML VIAL ONE (07:36)
[2021-05-31] MEDS: Ondansetron 4 mg VIAL 2 MG/ML 2 ml VIAL IV PRN ×2 (09:55→17:22)
[2021-05-31] MEDS: HYDROcodone/ACETAMIN 5/325 mg TAB PO PRN (17:46)
[2021-06-01 06:31] LABS: Anion Gap 3 mmol/L (2-11); Blood Urea Nitrogen 20 mg/dL (6-24); CO2 Carbon Dioxide 28 mmol/L (22-32); Chloride 93 mmol/L (101-111); Glucose 116 mg/dL (70-100); Potassium 4.1 mmol/L (3.5-5.0); Sodium 124 mmol/L (135-145)
[2021-06-01 06:38] LABS: ABS Eosinophils 0.1 10^3/ul (0-0.6); ABS Monocytes 0.6 10^3/ul (0-0.8); ABS Neutrophils 5.4 10^3/ul (1.5-7.7); Eosinophil % 0.9 %; Hematocrit 28 % (35-47); Hemoglobin 9.7 g/dL (12.0-16.0); Lymphocyte % 13.6 %; Mean Corpuscular HGB Conc 34 g/dL (31-36); Mean Corpuscular Hemoglobin 29 pg (27-31); Mean Corpuscular Volume 84 fL (80-97); Platelet Count 290 10^3/uL (150-450); Red Blood Count 3.39 10^6 /uL (3.70-4.87); Red Cell Distribution Width 16 % (10-15)
[2021-06-01] MEDS: Ondansetron 4 mg VIAL 2 MG/ML 2 ml VIAL IV PRN ×2 (08:19→15:50)
[2021-06-01 11:53] LABS: % Iron Saturation 12 % (15-55); Iron 27 ug/dL (50-212); Total Iron Binding Capacity 234 mcg/dL (250-450); Transferrin 167 mg/dL (203-362); Unsaturated Iron Binding < 219 ug/dL
[2021-06-01 12:27] LABS: Ferritin 314.7 ng/mL (11-307)
[2021-06-01 12:29] LABS: Vitamin B12 462 pg/mL (180-914)
[2021-06-01] MEDS: Senna TAB 8.6 mg TAB PO PRN (12:29)
[2021-06-01] MEDS: Latanoprost 0.005% 2.5 ml BTL BOTH EYES SCH (19:44)
[2021-06-01] MEDS: Morphine 2 MG/ML SYRINGE IV PRN (19:44)
[2021-06-02 05:47] LABS: ABS Eosinophils 0.1 10^3/ul (0-0.6); ABS Lymphocytes 1.1 10^3/ul (1.0-4.8); ABS Monocytes 0.5 10^3/ul (0-0.8); ABS Neutrophils 5.2 10^3/ul (1.5-7.7); Eosinophil % 1.1 %; Hematocrit 29 % (35-47); Hemoglobin 10.1 g/dL (12.0-16.0); Lymphocyte % 15.6 %; Mean Corpuscular HGB Conc 35 g/dL (31-36); Mean Corpuscular Hemoglobin 29 pg (27-31); Mean Corpuscular Volume 83 fL (80-97); Mean Platelet Volume 6.8 fL (7.4-10.4); Platelet Count 311 10^3/uL (150-450); Red Cell Distribution Width 16 % (10-15); White Blood Count 6.8 10^3/uL (3.5-10.8)
[2021-06-02] MEDS: HYDROcodone/ACETAMIN 5/325 mg TAB PO PRN (05:48)
[2021-06-02 06:01] LABS: Calcium 8.5 mg/dL (8.6-10.3); Magnesium 1.8 mg/dL (1.9-2.7); Potassium 3.7 mmol/L (3.5-5.0)
[2021-06-02] MEDS ORDERED: Magnesium Sulfate IV 1GM/100ML 1 GM/100 ML BAG IV ONE (08:50)
[2021-06-02] MEDS: Senna TAB 8.6 mg TAB PO PRN ×2 (09:14→20:19)
[2021-06-02] MEDS: Ondansetron 4 mg VIAL 2 MG/ML 2 ml VIAL IV PRN (10:16)
[2021-06-02] MEDS: Latanoprost 0.005% 2.5 ml BTL BOTH EYES SCH (20:18)
[2021-06-03 04:48] LABS: ABS Eosinophils 0.1 10^3/ul (0-0.6); ABS Lymphocytes 1.3 10^3/ul (1.0-4.8); ABS Monocytes 0.6 10^3/ul (0-0.8); ABS Neutrophils 4.8 10^3/ul (1.5-7.7); Eosinophil % 1.7 %; Hematocrit 26 % (35-47); Hemoglobin 9.1 g/dL (12.0-16.0); Lymphocyte % 18.5 %; Mean Corpuscular HGB Conc 35 g/dL (31-36); Mean Corpuscular Hemoglobin 29 pg (27-31); Mean Corpuscular Volume 83 fL (80-97); Nucleated Red Blood Cells % 0.1; Platelet Count 304 10^3/uL (150-450); Red Blood Count 3.15 10^6 /uL (3.70-4.87); Red Cell Distribution Width 16 % (10-15); White Blood Count 6.9 10^3/uL (3.5-10.8)
[2021-06-03 05:07] LABS: Calcium 8.6 mg/dL (8.6-10.3); Magnesium 2.1 mg/dL (1.9-2.7); Potassium 4.2 mmol/L (3.5-5.0)
[2021-06-03] MEDS ORDERED: Magnesium CITRATE LIQ 300 ML BTL PO ONE ×2 (08:30→14:00)
[2021-06-03 11:49] LABS: Potassium 4.4 mmol/L (3.5-5.0)
[2021-06-03] MEDS ORDERED: Morphine 2 MG/ML SYRINGE IV PRN (12:00)
[2021-06-03] MEDS: Ondansetron 4 mg VIAL 2 MG/ML 2 ml VIAL IV PRN ×2 (13:50→18:07)
[2021-06-03 19:22] LABS: Urine Creatinine Concentration 26.68 mg/dL
[2021-06-03] MEDS: Enoxaparin 30 MG/0.3 ML SYR SUBCUT SCH (22:22)
[2021-06-03] MEDS: Latanoprost 0.005% 2.5 ml BTL BOTH EYES SCH (22:23)
[2021-06-04] MEDS: oxyCODONE/Acetamin 5/325 mg TAB PO PRN ×3 (00:50→13:41)
[2021-06-04] MEDS: Iron Sucrose 200 MG in NS 0.9% 100 ml BAG 100 ML IVPB SCH (07:33)
[2021-06-04] MEDS: Polyethylene Glycol 3350 17 GM PACKET PO SCH (07:43)
[2021-06-04] MEDS ORDERED: Senna TAB 8.6 mg TAB PO ONE (08:30)
[2021-06-04 08:54] LABS: Potassium 4.6 mmol/L (3.5-5.0)
[2021-06-04] MEDS ORDERED: Acetaminophen IV 1 GM/100ML 100 ML IV PRN (13:39)
[2021-06-04] MEDS ORDERED: Lidocaine PATCH 5% PATCH TRANSDERM SCH (18:00)
[2021-06-04] MEDS: Lidocaine PATCH 5% PATCH TRANSDERM SCH (18:09)
[2021-06-04] MEDS: Enoxaparin 30 MG/0.3 ML SYR SUBCUT SCH (22:57)
[2021-06-04] MEDS: Latanoprost 0.005% 2.5 ml BTL BOTH EYES SCH (22:58)
[2021-06-04] MEDS: Lidocaine Patch REMOVE PATCH PATCH OFF SCH (23:10)
[2021-06-05 06:12] LABS: Hematocrit 28 % (35-47); Hemoglobin 9.5 g/dL (12.0-16.0); Mean Corpuscular HGB Conc 35 g/dL (31-36); Mean Corpuscular Hemoglobin 29 pg (27-31); Mean Corpuscular Volume 83 fL (80-97); Mean Platelet Volume 6.6 fL (7.4-10.4); Platelet Count 393 10^3/uL (150-450); Red Blood Count 3.32 10^6 /uL (3.70-4.87); Red Cell Distribution Width 16 % (10-15); White Blood Count 7.3 10^3/uL (3.5-10.8)
[2021-06-05 06:33] LABS: Magnesium 2.2 mg/dL (1.9-2.7); Potassium 4.7 mmol/L (3.5-5.0)
[2021-06-05] MEDS: oxyCODONE/Acetamin 5/325 mg TAB PO PRN ×2 (08:33→16:13)
[2021-06-05] MEDS: Polyethylene Glycol 3350 17 GM PACKET PO SCH ×2 (08:35→09:34)
[2021-06-05] MEDS: Lidocaine PATCH 5% PATCH TRANSDERM SCH (08:40)
[2021-06-05] MEDS: Iron Sucrose 200 MG in NS 0.9% 100 ml BAG 100 ML IVPB SCH (08:46)
[2021-06-05] MEDS: Ondansetron 4 mg VIAL 2 MG/ML 2 ml VIAL IV PRN (09:07)
[2021-06-05] MEDS: Enoxaparin 30 MG/0.3 ML SYR SUBCUT SCH (20:22)
[2021-06-05] MEDS: Senna TAB 8.6 mg TAB PO SCH (20:22)
[2021-06-05] MEDS: Lidocaine Patch REMOVE PATCH PATCH OFF SCH (20:23)
[2021-06-05] MEDS: Latanoprost 0.005% 2.5 ml BTL BOTH EYES SCH (20:23)
[2021-06-06 06:39] LABS: Hematocrit 26 % (35-47); Hemoglobin 9.4 g/dL (12.0-16.0); Mean Corpuscular HGB Conc 36 g/dL (31-36); Mean Corpuscular Hemoglobin 30 pg (27-31); Mean Corpuscular Volume 84 fL (80-97); Mean Platelet Volume 6.6 fL (7.4-10.4); Platelet Count 383 10^3/uL (150-450); Red Blood Count 3.14 10^6 /uL (3.70-4.87); Red Cell Distribution Width 16 % (10-15); White Blood Count 6.4 10^3/uL (3.5-10.8)
[2021-06-06 07:02] LABS: Magnesium 2.3 mg/dL (1.9-2.7)
[2021-06-06 07:13] LABS: Potassium 5.1 mmol/L (3.5-5.0)
[2021-06-06] MEDS: Lidocaine PATCH 5% PATCH TRANSDERM SCH (08:59)
[2021-06-06] MEDS: Iron Sucrose 200 MG in NS 0.9% 100 ml BAG 100 ML IVPB SCH (09:03)
[2021-06-06] MEDS: Polyethylene Glycol 3350 17 GM PACKET PO SCH (09:04)
[2021-06-06 15:55] LABS: Potassium 4.8 mmol/L (3.5-5.0)
[2021-06-06] MEDS: Senna TAB 8.6 mg TAB PO SCH (19:21)
[2021-06-06] MEDS: Enoxaparin 30 MG/0.3 ML SYR SUBCUT SCH (19:22)
[2021-06-06] MEDS: Latanoprost 0.005% 2.5 ml BTL BOTH EYES SCH (19:22)
[2021-06-06] MEDS: Lidocaine Patch REMOVE PATCH PATCH OFF SCH (19:34)
[2021-06-06] MEDS: Ondansetron 4 mg VIAL 2 MG/ML 2 ml VIAL IV PRN (20:49)
[2021-06-07 06:48] LABS: Hematocrit 27 % (35-47); Hemoglobin 9.2 g/dL (12.0-16.0); Mean Corpuscular HGB Conc 35 g/dL (31-36); Mean Corpuscular Hemoglobin 29 pg (27-31); Mean Corpuscular Volume 84 fL (80-97); Mean Platelet Volume 6.6 fL (7.4-10.4); Platelet Count 408 10^3/uL (150-450); Red Blood Count 3.17 10^6 /uL (3.70-4.87); Red Cell Distribution Width 17 % (10-15); White Blood Count 6.9 10^3/uL (3.5-10.8)
[2021-06-07 07:02] LABS: Calcium 8.9 mg/dL (8.6-10.3); Magnesium 2.1 mg/dL (1.9-2.7); Potassium 4.8 mmol/L (3.5-5.0)
[2021-06-07] MEDS: Lidocaine PATCH 5% PATCH TRANSDERM SCH (08:15)
[2021-06-07] MEDS: Polyethylene Glycol 3350 17 GM PACKET PO SCH (08:19)
[2021-06-07] MEDS: Iron Sucrose 200 MG in NS 0.9% 100 ml BAG 100 ML IVPB SCH (09:25)
[2021-06-07] MEDS: Ondansetron 4 mg VIAL 2 MG/ML 2 ml VIAL IV PRN (09:25)
[2021-06-07 13:16] LABS: Urine Creatinine Concentration 25.58 mg/dL
[2021-06-07] MEDS: Enoxaparin 30 MG/0.3 ML SYR SUBCUT SCH (20:54)
[2021-06-07] MEDS: Senna TAB 8.6 mg TAB PO SCH (20:55)
[2021-06-07] MEDS: Latanoprost 0.005% 2.5 ml BTL BOTH EYES SCH (20:56)
[2021-06-07] MEDS: Lidocaine Patch REMOVE PATCH PATCH OFF SCH (21:10)
[2021-06-08 06:17] LABS: Hematocrit 28 % (35-47); Hemoglobin 9.4 g/dL (12.0-16.0); Mean Corpuscular HGB Conc 34 g/dL (31-36); Mean Corpuscular Hemoglobin 29 pg (27-31); Mean Corpuscular Volume 85 fL (80-97); Mean Platelet Volume 6.6 fL (7.4-10.4); Platelet Count 438 10^3/uL (150-450); Red Blood Count 3.27 10^6 /uL (3.70-4.87); Red Cell Distribution Width 17 % (10-15); White Blood Count 7.5 10^3/uL (3.5-10.8)
[2021-06-08 06:36] LABS: Calcium 9.1 mg/dL (8.6-10.3); Magnesium 2.1 mg/dL (1.9-2.7); Potassium 4.5 mmol/L (3.5-5.0)
[2021-06-08] MEDS: Lidocaine PATCH 5% PATCH TRANSDERM SCH (08:40)
[2021-06-08] MEDS: Polyethylene Glycol 3350 17 GM PACKET PO SCH (08:40)
[2021-06-08] MEDS: Iron Sucrose 200 MG in NS 0.9% 100 ml BAG 100 ML IVPB SCH (09:36)
[2021-06-08 11:29] VITALS: BP 126/61
[2021-06-08 11:31] LABS: Vitamin D Total 25(OH) 35.9 ng/mL (20-50)
== END 2021-06-08 11:56 | disposition swing bed (61) | DRG 341 ==
LOC: ED 15:11 → SSU 20:29 → SUATTDRO 20:29 → SSU 05-31 00:29
PROVIDERS: ADMIT Internal Medicine; ATTEND Internal Medicine

== ENCOUNTER 2021-06-08 11:58 | Inpatient (IN) ==
[2021-06-08] MEDS ORDERED: Ondansetron 4 mg VIAL 2 MG/ML 2 ml VIAL IV PRN (12:12)
[2021-06-08] MEDS ORDERED: oxyCODONE/Acetamin 5/325 mg TAB PO PRN (12:12)
[2021-06-08] MEDS ORDERED: Albuterol HFA INHALER 8 gm MDI INH PRN (12:12)
[2021-06-08] MEDS: Enoxaparin 30 MG/0.3 ML SYR SUBCUT SCH (15:52)
[2021-06-08] MEDS: Senna TAB 8.6 mg TAB PO SCH (20:24)
[2021-06-08] MEDS ORDERED: Latanoprost 0.005% 2.5 ml BTL BOTH EYES SCH (21:00)
[2021-06-08] MEDS: Latanoprost 0.005% 2.5 ml BTL BOTH EYES SCH (21:09)
[2021-06-08] MEDS: Lidocaine Patch REMOVE PATCH PATCH OFF SCH (21:14)
[2021-06-09] MEDS: Lidocaine PATCH 5% PATCH TRANSDERM SCH (09:32)
[2021-06-09] MEDS: Polyethylene Glycol 3350 17 GM PACKET PO SCH (10:00)
[2021-06-09] MEDS: Enoxaparin 30 MG/0.3 ML SYR SUBCUT SCH (13:07)
[2021-06-09] MEDS: Latanoprost 0.005% 2.5 ml BTL BOTH EYES SCH (20:51)
[2021-06-09] MEDS: Lidocaine Patch REMOVE PATCH PATCH OFF SCH (20:52)
[2021-06-09] MEDS: Senna TAB 8.6 mg TAB PO SCH (20:52)
[2021-06-10] MEDS: Lidocaine PATCH 5% PATCH TRANSDERM SCH (08:13)
[2021-06-10] MEDS: Polyethylene Glycol 3350 17 GM PACKET PO SCH (13:01)
[2021-06-10] MEDS: Enoxaparin 30 MG/0.3 ML SYR SUBCUT SCH (14:27)
[2021-06-10] MEDS: Latanoprost 0.005% 2.5 ml BTL BOTH EYES SCH (20:45)
[2021-06-10] MEDS: Lidocaine Patch REMOVE PATCH PATCH OFF SCH (20:46)
[2021-06-10] MEDS: Senna TAB 8.6 mg TAB PO SCH (20:46)
[2021-06-11 06:25] LABS: Calcium 9.1 mg/dL (8.6-10.3)
[2021-06-11] MEDS: Lidocaine PATCH 5% PATCH TRANSDERM SCH (10:26)
[2021-06-11] MEDS: Polyethylene Glycol 3350 17 GM PACKET PO SCH (10:27)
[2021-06-11] MEDS: Enoxaparin 30 MG/0.3 ML SYR SUBCUT SCH (13:49)
[2021-06-11] MEDS: Senna TAB 8.6 mg TAB PO SCH (21:53)
[2021-06-11] MEDS: Latanoprost 0.005% 2.5 ml BTL BOTH EYES SCH (21:55)
[2021-06-11] MEDS: Lidocaine Patch REMOVE PATCH PATCH OFF SCH (22:02)
[2021-06-12] MEDS: Lidocaine PATCH 5% PATCH TRANSDERM SCH (09:18)
[2021-06-12] MEDS: Polyethylene Glycol 3350 17 GM PACKET PO SCH (09:20)
[2021-06-12] MEDS: Enoxaparin 30 MG/0.3 ML SYR SUBCUT SCH (13:53)
[2021-06-12] MEDS: Latanoprost 0.005% 2.5 ml BTL BOTH EYES SCH (19:59)
[2021-06-12] MEDS: Senna TAB 8.6 mg TAB PO SCH (20:03)
[2021-06-12] MEDS: Lidocaine Patch REMOVE PATCH PATCH OFF SCH (20:04)
[2021-06-13] MEDS: Polyethylene Glycol 3350 17 GM PACKET PO SCH (09:25)
[2021-06-13] MEDS: Bismuth Subsalicylate (BTL) 525 MG/30 ML (BULK BTL) PO PRN ×2 (09:26→11:23)
[2021-06-13] MEDS: Lidocaine PATCH 5% PATCH TRANSDERM SCH (09:27)
[2021-06-13] MEDS: Enoxaparin 30 MG/0.3 ML SYR SUBCUT SCH (14:29)
[2021-06-13] MEDS: Senna TAB 8.6 mg TAB PO SCH (20:04)
[2021-06-13] MEDS: Lidocaine Patch REMOVE PATCH PATCH OFF SCH ×2 (20:04→20:06)
[2021-06-13] MEDS: Latanoprost 0.005% 2.5 ml BTL BOTH EYES SCH (20:04)
[2021-06-14] MEDS: Polyethylene Glycol 3350 17 GM PACKET PO SCH (08:58)
[2021-06-14] MEDS: Lidocaine PATCH 5% PATCH TRANSDERM SCH (08:59)
[2021-06-14 12:47] VITALS: BP 162/78
[2021-06-14 12:49] LABS: Rapid COVID-19 Molecular Undetected (Undetected)
[2021-06-14] MEDS: Enoxaparin 30 MG/0.3 ML SYR SUBCUT SCH (14:05)
== END 2021-06-14 13:00 | DRG 860 ==
LOC: SUATTDRO 11:58 → SSU 11:58 → MCHPEDS 15:50
PROVIDERS: ADMIT Hospitalist; ATTEND Student in an Organized Health Care Education/Training Program